=== PATIENT | male | born 1965 | race African-American/Black ===

== ENCOUNTER → 2021-04-16 02:52 | Outpatient (CLI) | payer BC, SELFPAY ==
[2021-04-16 20:56] LABS: SARS-CoV-2 RNA PCR Negative
== END ==
PROVIDERS: PCP Internal Medicine; Visit Provider Internal Medicine
DX: R09.89 Other specified symptoms and signs involving the circulatory and respiratory systems (principal); Z20.822 Contact with and (suspected) exposure to COVID-19
CPT/HCPCS: C9803; U0003; U0005

== ENCOUNTER 2024-06-02 13:09 | Emergency (ER) | payer OTHER, SELFPAY ==
[2024-06-02 13:22] VITALS: BP 120/90; PULSE 99; RESP 16; TEMP 36.6; O2SAT 98
--- NOTE | 2024-06-02 14:12 | ED.URI ---
HPI - URI/Sore Throat General Chief Complaint: Upper Respiratory Infection Stated Complaint: SINUS/CONGESTION Time Seen by Provider: 06/02/24 14:00 Source: patient, RN notes reviewed and old records reviewed Mode of arrival: ambulatory Limitations: no limitations History of Present Illness HPI Narrative: 58 year old male presents to [facility] for rehabilitation care with complaints of cough, fevers and sinus congestion with headache starting a few days ago. Patient states that on Tuesday he didn't feel well and on he continued with symptoms but also had fevers along with his symptoms. Patient reports that he did not have fever this morning but continues with cough and sinus congestion.Patient reports that he has been taking Mucinex and Zyrtec and Flonase. He states that he took Tylenol and Ibuprofen when he had fevers. MD elicited complaint: fever, cough, rhinorrhea and nasal congestion Onset (ago): day(s) (4) Severity: moderate Able to tolerate fluids by mouth: Yes Treatments prior to arrival: acetaminophen and ibuprofen (when fever, Mucinex, Zyrtec and Flonase) Related Data Home Medications ?Medication ?Instructions ?Recorded ?Confirmed ?Last Taken ?Type sildenafil 100 mg tablet 100 mg PO DAILY 05/17/19 06/02/24 Unknown History Allergies Allergy/AdvReac Type Severity Reaction Status Date / Time Penicillins Allergy Unknown Rash Verified 06/02/24 13:22 Review of Systems Review of Systems: CONSTITUTIONAL: Reports malaise, chills, sweats, or fever. EYES: Denies visual changes, redness, or discharge. ENT: Reports rhinorrhea, congestion, sinus pain, no otalgia and no sore throat. CARDIOVASCULAR: Denies chest pain, palpitations, or edema. RESPIRATORY: Reports cough.? Denies dyspnea. GASTROINTESTINAL: Denies abdominal pain, nausea, vomiting, diarrhea SKIN: Denies rash or itching. MUSCULOSKELETAL: Denies myalgia. NEUROLOGIC: reports headache. All systems reviewed & are unremarkable except as noted in HPI and below [facility] Surgical History Surgical History (Updated 06/05/24 @ 08:09 by Maty Webb NP) History of surgical removal of ganglion cyst H/O umbilical hernia repair H/O cervical spine surgery Family History Family History (Updated 01/30/19 @ 15:11 by DOCTOR UNKNOWN) Mother Hypertension Sibling Patient's brother is in good health Father Patient's father is in good health Family history of malignant neoplasm Other Cerebrovascular accident Diabetes mellitus Family history of allergic disorder Family history of cardiovascular disease Social History Social History (Updated 06/05/24 @ 08:07 by Maty Webb NP) Smoking status: Never smoker Second hand tobacco smoke exposure: No Alcohol intake: current Substance use type: does not use Gender identity (if verbalized by the patient): Male Comments At time of signature, agree with nursing past medical, surgical, social and family history. There is no relevant family history pertinent to the presenting complaint Exam Narrative: GENERAL: Well-appearing, well-nourished, and in no acute distress. HEAD: Normocephalic EYES: PERRLA, conjunctivae clear ENT: Nares clear, turbinates edematous and erythematous, clear discharge, sinus pressure and headache. Mucous membranes moist. TM pearly temple with dull light reflex bilaterally; no tragal tenderness. Oropharynx erythematous without lesions. Tonsils not enlarged and without exudate, no drooling, no hoarseness, no trismus, uvula midline.post nasal drainage NECK: Supple. No lymphadenopathy CHEST: Clear to auscultation, breath sounds equal. No wheezing, rhonchi, rales, or stridor. No respiratory distress, speaks in full sentences.cough noted dry, SAO2 98% on room air HEART: Regular rate and rhythm. No murmur heard. SKIN: Warm, dry, no rash. NEURO: Alert and oriented x3. PSYCH: Normal mood and affect Course Course Emergency Course: Patient is aware of diagnosis, understands and agrees to treatment plan.? Anticipatory guidance given.? Patient agrees to follow-up as directed and is aware of reasons to seek care at the emergency department. Portions of this record may have been created with voice recognition software Level of Care: Express Care Visit Vital Signs Vital signs: Vital Signs Temperature 36.6 C 06/02/24 13:22 Pulse Rate 99 06/02/24 13:22 Respiratory Rate 16 06/02/24 13:22 Blood Pressure 120/90 06/02/24 13:22 Pulse Oximetry 98 06/02/24 13:22 Temperature 36.6 C 06/02/24 13:22 Pulse Rate 99 06/02/24 13:22 Respiratory Rate 16 06/02/24 13:22 Blood Pressure 120/90 06/02/24 13:22 Pulse Oximetry 98 06/02/24 13:22 Reviewed MDM - URI/Sore Throat MDM Narrative Medical decision making narrative: Differential diagnosis considered: Powers virus, strep pharyngitis, allergic rhinitis, upper respiratory tract infection, sinusitis, rhinosinusitis, nasopharyngitis. viral pharyngitis, otitis media, otitis externa, pneumonia, bronchitis, viral cough syndrome, viral syndrome, and influenza.? Exam findings show no acute concerns or changes; patient is non-toxic appearing and is in no distress.? Patient is appropriate for outpatient treatment and follow-up. Differential Diagnosis Differential diagnosis: Likely upper respiratory infection, sinusitis, viral infection, influenza and other (COVID) Medical Records Attestation: I reviewed the patient's medical records. Lab Data Attestation: I reviewed the patient's lab results. Lab results narrative: Influenza A negative, Influenza B negative, COVID antigen positive Labs: Lab Results 06/02/24 Range/Units 13:42 POC Influenza A Ag Negative (Negative) POC Influenza B Ag Negative (Negative) POC SARS CoV-2 Ag Positive (Negative) reviewed Critical Care Time Critical Care Time Critical Care Time: No Discharge Plan Discharge Clinical Impression: COVID-19 Patient Disposition: Home, Self-Care Condition: Stable Instructions: How to Recover from COVID-19 at Home (ED) Additional Instructions: Increase fluids especially juices and water [id number] cough and cold medicine of your choice for your symptoms continue your daily Zyrtec Flonase Tylenol or Ibuprofen for any fever or pain Mucinex for cough and congestion make sure you are drinking plenty of water or you taking this medicine heat to the face 20-30 minutes 4-6 times a day for pain Salt water gargles, throat lozenges or throat sprays as desired you must quarantine 5 days from start of symptoms which you also must be fever free for 24 hours without use of Tylenol or ibuprofen COVID-19 DISCHARGE The following recommendations have been made by the CDC and local Health Departments, regarding COVID-19: Those individuals with mild cases of COVID-19 can generally be discontinued from isolation, 5 days AFTER the onset of symptoms AND the resolution of fever for 24hrs (without the use of fever-reducing medications) Those individuals who were asymptomatic, and tested positive, are discontinued from isolation 10 days AFTER their first positive COVID-19 test Those individuals with SEVERE to CRITICAL illness or immunocompromised diseases may require up to 20 days of home isolation or hospitalization Majority of mild to moderate cases can be treated at home, without hospitalization or prescription medications You do not need a negative test result to return to work/school, assuming the above recommendations have been met and you are not symptomatic. At this time, return to work/school notes will not be provided. Guidelines from the local Health Department, CDC, and workplace are expected to be followed. All individuals in the household need to remained quarantined for up to 14 days if asymptomatic OR 10 days after the start of symptoms. Everyone in the home DOES NOT require testing, they are presumed positive and should quarantine as directed. Treating symptoms for mild to moderate cases may include: Tylenol, Flonase/nasal spray, OTC cold/flu medications recommended from your provider or any necessary prescription medications provided at your visit or from your PCP IF YOU TESTED NEGATIVE If you are symptomatic with reason to believe you have COVID-19, there is a high possibility your rapid test may not have detected the virus. Rapid testing is dependent on timing and viral load and may have a false-negative reading You should follow appropriate guidelines regarding quarantine, hand washing, mask wearing, and social distancing You may be sent for PCR testing as an outpatient to the [place] testing site Common Adult Symptoms: Fever/chills Cough Shortness of breath Fatigue, muscle aches Headache Loss of taste/smell Sore throat, congestion, runny nose GI symptoms (nausea, vomiting, diarrhea) Common Pediatric Symptoms Cough Fever GI symptoms (diarrhea, upset stomach, nausea, vomiting) Symptoms may differ in severity however, most cases do not require hospitalization. WHEN TO SEEK ER EVALUATION/TREATMENT Severe/persistent shortness of breath or difficulty breathing Elevated, persistent fevers without resolution with fever-reducing medications Chest pain Extreme fatigue/lethargy Complications of pre-existing disease Patient Language: Hebrew Prescriptions: New Paxlovid 300 mg (150 mg x 2)-100 mg tablets,dose pack See Rx Instructions .ROUTE .COMPLEX Qty: 30 0RF Rx Instructions: take TWO 150 mg tablets of nirmatrelvir with ONE 100 mg tablet of ritonavir twice daily for 5 days No Action sildenafil 100 mg tablet 100 mg PO DAILY Rx Instructions: take 1 tablet by mouth as needed approximately 1 hour before sexual activity Follow-up/Referrals: Goyo,aRhul Lynch DO [Primary Care Provider] - Time of Disposition: 14:28 Quality Daljit Coma Scale Eyes: Open Verbal: Oriented and Alert Motor: Follows Commands Daljit Coma Total Score: 15
[2024-06-02 14:18] LABS: EDCOVIDSCREEN Positive (Negative); EDINFLUASCREEN Negative (Negative); EDINFLUBSCREEN Negative (Negative)
== END 2024-06-02 14:35 | disposition home or self-care (01) ==
PROVIDERS: Emergency Provider Registered Nurse; PCP Family Medicine
DX: U07.1 COVID-19 (principal)
CPT/HCPCS: 87426; 87804; 99213; G0463